=== PATIENT | female | born 1950 | race Caucasian/White ===

== ENCOUNTER 2024-03-23 05:46 | Day surgery (SDC) | payer MEDICARE, OTHER ==
[2024-03-14 12:20] LABS: BILIRUBIN,URINE NEGATIVE (Neg); GLUCOSE, URINE NEGATIVE (Neg); KETONES,URINE NEGATIVE (Neg); LEUKOCYTE ESTERASE ,URINE TRACE (Neg); NITRITES, URINE NEGATIVE (Neg); OCCULT BLOOD,URINE NEGATIVE (Neg); PROTEIN,URINE NEGATIVE (Neg); UROBILINOGEN,URINE 0.2 E.U/dL (0.2-1.0)
[2024-03-14 12:23] LABS: UA COLLECTION TYPE CLN CATCH MIDSTREAM
[2024-03-14 12:24] LABS: CLARITY,URINE SLIGHTLY CLOUDY (Clear); COLOR,URINE YELLOW (Yellow)
[2024-03-14 12:26] LABS: BASOPHILS # (AUTO) 0.1 X10'3 (0-0.2); EOSINOPHILS # (AUTO) 0.3 X10'3 (0-0.9); LYMPHOCYTES # (AUTO) 1.8 X10'3 (1.1-4.8); LYMPHOCYTES % (AUTO) 27.1 % (21-51); MEAN CORPUSCULAR HEMOGLOBIN 29.7 PG (27.0-31.0); MEAN CORPUSCULAR HGB CONC 33.9 g/dL (33.0-36.5); MEAN CORPUSCULAR VOLUME 87.6 FL (78-98); MEAN PLATELET VOLUME 7.8 FL (7.4-10.4); MONOCYTES # (AUTO) 0.5 X10'3 (0-0.9); MONOCYTES % (AUTO) 7.8 % (2-12); NEUTROPHILS # (AUTO) 3.9 X10'3 (1.8-7.7); NEUTROPHILS % (AUTO) 60.1 % (42-75); PRE OP HEMATOCRIT 38.3 % (35.0-45.0); PRE OP PLATELET COUNT 312 X10'3 (140-440); PRE OP WHITE BLOOD COUNT 6.5 10'3 (4.8-10.8); RED BLOOD COUNT 4.38 X10'6 (4.20-5.60); RED CELL DISTRIBUTION WIDTH 13.3 % (11.5-14.5)
[2024-03-14 12:37] LABS: BACTERIA,URINE RARE /HPF (Neg); RBC,URINE NONE SEEN /HPF (0-2); WBC,URINE 0-4 /HPF (0-4)
[2024-03-14 12:38] LABS: SQUAMOUS EPITHELIAL CELL,UR NONE SEEN /LPF (FEW)
[2024-03-14 12:41] LABS: ALBUMIN/GLOBULIN RATIO 1.2 (1.1-1.5); ALKALINE PHOSPHATASE 107 IU/L (46-116); BLOOD UREA NITROGEN 15 MG/DL (7-18); BUN/CREATININE RATIO 15.6 (10.0-20.0); CALCIUM 9.5 MG/DL (8.5-10.1); CHLORIDE 101 MMOL/L (99-107); CREATININE 0.96 MG/DL (0.40-0.90); PRE OP ALT 21 U/L (30-65); PRE OP ANION GAP 9 (8-16); PRE OP AST 25 U/L (10-37); PRE OP BILIRUB, TOTAL 0.6 MG/DL (0.0-1.0); PRE OP GLUCOSE 99 MG/DL (70-104); PRE OP SODIUM 137 MMOL/L (135-145); TOTAL CARBON DIOXIDE 27.3 MMOL/L (24-32); TOTAL PROTEIN 7.3 G/DL (6.4-8.2); eGFR 57 ML/MIN
[~2024-03-23] VITALS: Ht 172.7 cm; Wt 104.0 kg
[2024-03-23] VITALS (10 sets, daily range): BP systolic 100–120; BP diastolic 50–74; PULSE 84–95; RESP 13–19; TEMP 99.2; O2SAT 94–100
[~2024-03-23 05:46] MED LIST: ALBU18HF2 INH; ALBU2.5V13 NEB; ARFO15VI NEB; BUDE0.5A3 NEB; CALC-159 PO; CALCIUM; CEPH250T PO; DIPH-186 PO; ESCI20TA PO; FLUT16SP11 BOTHNARES; GABA-530 PO; HYDR-3686 PO; HYDR12.55 PO; LISI10TA27 PO; MELO-102 PO; MONT-40 PO; MULT-933 PO; SIMV-42 PO; SYN0.088T PO; TEZE210P; TIOT4MIS5 INH; [UNRECOGNIZED DRUG - OTHER]; albuterol 2.5 MG/3 ML nebule NEB PRN; ringers solution, lacted 1,000 ML IV SCH
[2024-03-23] MEDS ORDERED: scopolamine 1MG/72H patch 1 PATCH PATCH.TD.3 TD SCH (06:10)
[2024-03-23] MEDS: ceFAZolin 2gm in dextrose, iso 50 ML IV ONE (06:16)
[2024-03-23] MEDS ORDERED: BUPIVAcaine 2.5mg/ml inj 50ml vial (contains preservative) ONE (07:04)
[2024-03-23] MEDS ORDERED: bacitracin 15gm ointment TP ONE (07:04)
[2024-03-23] MEDS ORDERED: fentaNYL/PF 50MCG/1 ML 2ML syringe ONE (08:09)
[2024-03-23] MEDS ORDERED: MIDAZolam 1 MG/ML 5ML VIAL ONE (08:09)
[2024-03-23] MEDS ORDERED: sevoflurane 250ml liquid IH ONE (08:14)
[2024-03-23] MEDS ORDERED: BUPIVAcaine/PF 7.5mg/ml (0.75%) 10ml vial ONE (08:15)
[2024-03-23] MEDS ORDERED: ROPIVAcaine 0.5% (5mg/ml) 30ml vial ONE (08:15)
[2024-03-23] MEDS ORDERED: LIDOcaine 1%/PF 5ML 10 MG/ML VIAL ONE (08:32)
[2024-03-23] MEDS ORDERED: propofol inj 20 ML IV ONE (08:32)
[2024-03-23] MEDS ORDERED: meperidine/PF 50mg/ml syringe ONE (09:12)
[2024-03-23] MEDS ORDERED: proCHLORperazine 10 MG/2 ml inj IV PRN (09:25)
[2024-03-23] MEDS ORDERED: labetalol 20mg/4ml (5mg/ml) syringe IV PRN (09:25)
[2024-03-23] MEDS ORDERED: enalaprilat dihydrate 2.5mg/2ml vial IV PRN (09:25)
[2024-03-23] MEDS ORDERED: morphine 2 MG/ML inj. syringe IV PRN (09:25)
[2024-03-23] MEDS ORDERED: ondansetron/PF 4mg/2ml inj IV PRN (09:25)
[2024-03-23] MEDS ORDERED: meperidine/PF 25mg/ml syringe IV PRN ×3 (09:25)
[2024-03-23] MEDS ORDERED: ondansetron/PF 4mg/2ml inj ONE (11:22)
[2024-03-23] MEDS ORDERED: acetaminophen 1,000mg/100ml IV 100 ML IV ONE (11:23)
[2024-03-23] MEDS ORDERED: albumin (Human) 5% 250ml 250 ML IV ONE (11:24)
[2024-03-23] MEDS: famotidine 20mg tablet PO ONE (11:33)
== END 2024-03-23 13:03 | disposition home or self-care (01) ==
LOC: PAS 05:46
PROVIDERS: ATTEND Podiatrist Foot & Ankle Surgery
DX: T84.84XA Pain due to internal orthopedic prosthetic devices, implants and grafts, initial encounter (principal); M79.671 Pain in right foot; G89.18 Other acute postprocedural pain; I10 Essential (primary) hypertension; I25.10 Atherosclerotic heart disease of native coronary artery without angina pectoris; E78.5 Hyperlipidemia, unspecified; J44.89 Other specified chronic obstructive pulmonary disease; E66.9 Obesity, unspecified; F32.A Depression, unspecified; G62.9 Polyneuropathy, unspecified; G47.33 Obstructive sleep apnea (adult) (pediatric); Z79.82 Long term (current) use of aspirin; Z79.890 Hormone replacement therapy; Z79.899 Other long term (current) drug therapy; Z90.710 Acquired absence of both cervix and uterus; Z98.890 Other specified postprocedural states; Z68.37 Body mass index [BMI] 37.0-37.9, adult; Z88.0 Allergy status to penicillin; Z88.2 Allergy status to sulfonamides; Z88.8 Allergy status to other drugs, medicaments and biological substances; Y83.8 Other surgical procedures as the cause of abnormal reaction of the patient, or of later complication, without mention of misadventure at the time of the procedure; Y92.89 Other specified places as the place of occurrence of the external cause
CPT/HCPCS: 20680; 28740; 36415; 64445; 64447; 73620; 80053; 81001; 82948; 85025; 87088; A4215; A4618; A6223; A6402; A6449; A7000; C1713; J0131; J0690; J2175; J2250; J2405; J2704; J2795; J3010; J3490; J7030; J7120; P9045; Z7506; Z7508; Z7512; Z7610; 76000; J1100

== ENCOUNTER 2024-07-13 09:35 | Outpatient (CLI) | payer MEDICARE, OTHER ==
[~2024-07-13 09:35] MED LIST changes: -albuterol 2.5 MG/3 ML nebule NEB PRN; -ringers solution, lacted 1,000 ML IV SCH
== END 2024-07-13 23:59 | disposition home or self-care (01) ==
LOC: RAD 09:35
PROVIDERS: ATTEND Podiatrist Foot & Ankle Surgery
DX: M79.672 Pain in left foot (principal)
CPT/HCPCS: 73700

== ENCOUNTER 2024-09-25 12:30 | Outpatient (CLI) | payer MEDICARE, OTHER ==
--- NOTE | 2024-09-25 16:55 | RADIOLOGY REPORT ---
CLINICAL INDICATION: PAIN IN RIGHT FOOT TECHNIQUE: Noncontrast CT of the right lower extremity was performed. Sagittal and coronal reformatte d images are provided. COMPARISON: CT CT LOWER EXTREMITY on DOS: 07/13/24 CT Dose: CTDI volume is 14.4 mGy. Dose-length product is 487 mGy*cm FINDINGS: The bones are demineralized, which limits evaluation. There are multiple screws across the tarsal bon es and the talonavicular joint. There is some fusion between the medial and intermediate cuneiform. Otherwise no fusion noted and there is 4 mm circumferential lucency surrounding the screw across the talonavicular joint. Lucency in the posterior calcaneus likely reflects harvest graft site. No eviden ce of cortical destruction. Soft tissue swelling in the ankle and foot. There is a fluid collection along the medial foot adjacent to the talus measuring 2.2 by 1.6 cm. IMPRESSION: 1. Postsurgical changes in the midfoot. There is lucency surrounding 1 of the screws across the derrek avicular joint concerning for loosening. Fluid collection along the medial foot adjacent to the talus , can not exclude abscess. No definite findings to suggest osteomyelitis however in a patient with o sseous demineralization CT may not be sensitive for detection of osteomyelitis. MRI recommended if cl inically warranted. All CT scans at this medical facility are performed using dose modulation techniques as appropriate t o a performed exam including the following: Automated exposure control was utilized; adjustment of th e MA and/or KV according to patient size; and use of iterative reconstruction technique. HS:Y
== END 2024-09-25 23:59 | disposition home or self-care (01) ==
LOC: RAD 12:30
PROVIDERS: ATTEND Podiatrist Foot & Ankle Surgery
DX: M79.672 Pain in left foot (principal); M79.671 Pain in right foot; Z98.890 Other specified postprocedural states
CPT/HCPCS: 73700

== ENCOUNTER 2024-11-02 13:29 | Day surgery (SDC) | payer MEDICARE, OTHER ==
[2024-10-26 11:55] LABS: BILIRUBIN,URINE NEGATIVE (Neg); CLARITY,URINE SLIGHTLY CLOUDY (Clear); COLOR,URINE YELLOW (Yellow); GLUCOSE, URINE NEGATIVE (Neg); KETONES,URINE NEGATIVE (Neg); LEUKOCYTE ESTERASE ,URINE NEGATIVE (Neg); NITRITES, URINE NEGATIVE (Neg); OCCULT BLOOD,URINE NEGATIVE (Neg); PROTEIN,URINE NEGATIVE (Neg); UROBILINOGEN,URINE 0.2 E.U/dL (0.2-1.0)
[2024-10-26 11:57] LABS: BASOPHILS % (AUTO) 0.7 % (0-1); EOSINOPHILS # (AUTO) 0.1 X10'3 (0-0.9); EOSINOPHILS % (AUTO) 2.4 % (0-6); LYMPHOCYTES # (AUTO) 1.2 X10'3 (1.1-4.8); LYMPHOCYTES % (AUTO) 20.9 % (21-51); MEAN CORPUSCULAR HEMOGLOBIN 30.2 PG (27.0-31.0); MEAN CORPUSCULAR HGB CONC 34.5 g/dL (33.0-36.5); MEAN CORPUSCULAR VOLUME 87.6 FL (78-98); MEAN PLATELET VOLUME 7.5 FL (7.4-10.4); MONOCYTES # (AUTO) 0.4 X10'3 (0-0.9); MONOCYTES % (AUTO) 6.5 % (2-12); NEUTROPHILS # (AUTO) 3.9 X10'3 (1.8-7.7); NEUTROPHILS % (AUTO) 69.5 % (42-75); PRE OP HEMATOCRIT 34.8 % (35.0-45.0); PRE OP PLATELET COUNT 303 X10'3 (140-440); PRE OP WHITE BLOOD COUNT 5.6 10'3 (4.8-10.8); RED BLOOD COUNT 3.97 X10'6 (4.20-5.60); RED CELL DISTRIBUTION WIDTH 13.3 % (11.5-14.5)
[2024-10-26 12:11] LABS: UA COLLECTION TYPE CLN CATCH MIDSTREAM
[2024-10-26 12:13] LABS: BACTERIA,URINE NONE SEEN /HPF (Neg); MUCUS STRANDS FEW /LPF (Neg); RBC,URINE 0-2 /HPF (0-2); SQUAMOUS EPITHELIAL CELL,UR FEW /LPF (FEW); WBC,URINE 0-4 /HPF (0-4)
[2024-10-26 12:14] LABS: ALBUMIN 3.6 G/DL (3.4-5.0); ALBUMIN/GLOBULIN RATIO 1.1 (1.1-1.5); ALKALINE PHOSPHATASE 108 IU/L (46-116); BLOOD UREA NITROGEN 12 MG/DL (7-18); BUN/CREATININE RATIO 15.6 (10.0-20.0); CALCIUM 9.3 MG/DL (8.5-10.1); CHLORIDE 107 MMOL/L (99-107); CREATININE 0.77 MG/DL (0.40-0.90); PRE OP ALT 23 U/L (30-65); PRE OP ANION GAP 7 (8-16); PRE OP AST 19 U/L (10-37); PRE OP BILIRUB, TOTAL 0.4 MG/DL (0.0-1.0); PRE OP GLUCOSE 117 MG/DL (70-104); PRE OP POTASSIUM 4.2 MMOL/L (3.4-5.1); PRE OP SODIUM 142 MMOL/L (135-145); TOTAL PROTEIN 6.8 G/DL (6.4-8.2); eGFR 73 ML/MIN
[~2024-11-02] VITALS: Ht 172.7 cm; Wt 99.8 kg
[2024-11-02] VITALS (12 sets, daily range): BP systolic 92–147; BP diastolic 54–77; PULSE 63–74; RESP 11–19; TEMP 98.7; O2SAT 92–98
[2024-11-02] MEDS: VANCOMYCIN/H2O 1.5g/300mL PB 300 ML IV ONE (05:30)
[~2024-11-02 13:29] MED LIST changes: -CALCIUM; +CETI10TA19 PO; +CHOL10006 PO; -HYDR12.55 PO; -LISI10TA27 PO; +LISI20TA28 PO; +MAGN400C PO; -TEZE210P; +TEZE210P SQ; -[UNRECOGNIZED DRUG - OTHER]
[2024-11-02] MEDS: famotidine 20mg tablet PO ONE (13:59)
[2024-11-02] MEDS: ringers solution, lacted 1,000 ML IV SCH (14:00)
[2024-11-02] MEDS ORDERED: fentaNYL/PF 50MCG/1 ML 2ML syringe ONE (14:21)
[2024-11-02] MEDS ORDERED: bacitracin 15gm ointment TP ONE (14:43)
[2024-11-02] MEDS ORDERED: sevoflurane 250ml liquid IH ONE (14:55)
[2024-11-02] MEDS ORDERED: 0.9 % SODIUM CHLORIDE 10 ML VIAL ONE (15:02)
[2024-11-02] MEDS ORDERED: dexamethasone sod phosphate 4mg/ml inj. ONE (15:02)
[2024-11-02] MEDS ORDERED: propofol inj 20 ML IV ONE (15:02)
[2024-11-02] MEDS ORDERED: LIDOcaine 2% (20mg/ml) 5ml vial ONE (15:02)
[2024-11-02] MEDS ORDERED: ROPIVAcaine 0.5% (5mg/ml) 30ml vial ONE (15:02)
[2024-11-02] MEDS ORDERED: midazolam 1 mg/ML 2ml injection ONE (15:02)
[2024-11-02] MEDS ORDERED: dextrose 50%-water 50ml dispensing syringe IV ONE (15:40)
[2024-11-02] MEDS ORDERED: ringers solution, lacted 1,000 ML IV SCH (17:00)
[2024-11-02] MEDS ORDERED: ondansetron/PF 4mg/2ml inj IV PRN (17:00)
[2024-11-02] MEDS ORDERED: labetalol 20mg/4ml (5mg/ml) syringe IV PRN (17:00)
[2024-11-02] MEDS ORDERED: proCHLORperazine 10 MG/2 ml inj IV PRN (17:00)
[2024-11-02] MEDS ORDERED: HYDROmorphone/PF 0.2 MG/ML SYRINGE IV PRN ×2 (17:00)
[2024-11-02] MEDS ORDERED: meperidine/PF 25mg/ml syringe IV PRN ×3 (17:00)
[2024-11-02] MEDS ORDERED: hydrALAZINE 20mg/ml inj. IV PRN (17:00)
[2024-11-02] MEDS: acetaminophen 1,000mg/100ml IV 100 ML IV PRN (17:38)
== END 2024-11-02 18:54 | disposition home or self-care (01) ==
LOC: PAS 13:29
PROVIDERS: ATTEND Podiatrist Foot & Ankle Surgery
DX: T84.84XA Pain due to internal orthopedic prosthetic devices, implants and grafts, initial encounter (principal); T84.89XA Other specified complication of internal orthopedic prosthetic devices, implants and grafts, initial encounter; Y83.8 Other surgical procedures as the cause of abnormal reaction of the patient, or of later complication, without mention of misadventure at the time of the procedure; M19.072 Primary osteoarthritis, left ankle and foot; M19.041 Primary osteoarthritis, right hand; M18.12 Unilateral primary osteoarthritis of first carpometacarpal joint, left hand; M96.0 Pseudarthrosis after fusion or arthrodesis; J44.9 Chronic obstructive pulmonary disease, unspecified; I10 Essential (primary) hypertension; F41.9 Anxiety disorder, unspecified; F32.A Depression, unspecified; Z87.891 Personal history of nicotine dependence; E03.9 Hypothyroidism, unspecified; Z88.0 Allergy status to penicillin; Z88.6 Allergy status to analgesic agent; Z88.8 Allergy status to other drugs, medicaments and biological substances; Z79.899 Other long term (current) drug therapy; Z98.890 Other specified postprocedural states; G89.18 Other acute postprocedural pain
CPT/HCPCS: 20680; 20902; 28740; 36415; 64445; 64447; 73620; 80053; 81001; 82948; 85025; A4618; A6223; A6253; A6402; A6446; A6449; A7000; C1713; J0131; J0735; J1100; J2003; J2250; J2405; J2704; J2795; J3010; J3372; J3490; J7030; J7120; Z7506; Z7508; Z7512; Z7610; 76000

== ENCOUNTER 2025-02-23 14:35 | Outpatient (CLI) | payer MEDICARE, OTHER ==
--- NOTE | 2025-02-23 16:03 | RADIOLOGY REPORT ---
Procedure: CT CT LOWER EXTREMITY 02/23/2025 02:45 PM Indication: PRIMARY OSTEOARTHRITIS, right ANKLE AND FOOT Comparison Study: DI FOOT,LIMITED (AP/LAT) on DOS: 11/02/24, CT CT LOWER EXTREMITY on DOS: 09/25/24, CT CT LOWER EXTREMITY on DOS: 07/13/24 Technique: Axial images right foot and ankle were obtained and reformatted in coronal and sagittal planes. All CT scans at this medical facility are performed using dose modulation techniques as appropriate to a performed exam including the following: Automated exposure control was utilized; adjustment of the MA and/or KV according to patient size; and use of iterative reconstruction technique. CT Dose: CTDI volume is 14.36+ 0.14 mGy. Dose-length product is 366.17 mGy*cm FINDINGS: Bones: Multiple screws are seen through the talus which extend to the medial and intermediate cuneiform and an additional screw vertically through the lateral cuneiform. There is a screw that extends from the medial aspect of the calcaneus through the inferior talus to the intermediate cuneiform. There is a screw within the medial cuneiform. There is a fracture screw through the lateral aspect of the talus which partially transverses the lateral cuneiform. There are multiple bony fragments anterior to the talus. The navicular appears to be fused to the cuneiforms. There is some periprosthetic lucencies about some of the screws for example series 402, image 24 in a screw that extends into the base of the 1st metatarsal. There is bony demineralization. Multiple lucencies throughout the cuneiforms, calcaneus, and talus Soft tissues: Soft tissue swelling within the left foot most pronounced at the dorsum. There is also ill-defined fluid about the midfoot. Evaluation for abscess limited without contrast. IMPRESSION: 1. Multiple screws are seen in the midfoot for example through the talus extending into the cuneiforms. There appears to be fusion of the navicular with the medial and intermediate cuneiform. 2. There is a fracture of a screw which traverses the lateral aspect of the talus and partially transverses the lateral cuneiform. 3. There are periprosthetic lucencies about some of the screws with an example given above. This could reflect hardware loosening. Infection is not excluded. Correlate with clinical symptoms. 4. Multiple bony fragments in the remaining talonavicular joint which could be heterotopic ossification , degenerative changes, or sequelae of osteomyelitis neuropathic arthropathy in the appropriate clinical setting, or trauma. 5. Soft tissue swelling about the left foot most pronounced at the dorsum. Ill- defined fluid about the midfoot. Evaluation for abscess limited without contrast.
== END 2025-02-23 23:59 | disposition home or self-care (01) ==
LOC: RAD 14:35
PROVIDERS: ATTEND Orthopaedic Surgery Foot and Ankle Surgery
DX: S92.191A Other fracture of right talus, initial encounter for closed fracture (principal); M20.41 Other hammer toe(s) (acquired), right foot; M79.672 Pain in left foot; M19.072 Primary osteoarthritis, left ankle and foot; M96.0 Pseudarthrosis after fusion or arthrodesis; M79.89 Other specified soft tissue disorders; X58.XXXA Exposure to other specified factors, initial encounter; Y93.89 Activity, other specified; Y92.89 Other specified places as the place of occurrence of the external cause; Y99.8 Other external cause status
CPT/HCPCS: 73700